=== PATIENT | female | born 1995 | race Two or more races ===

== ENCOUNTER 2018-01-05 12:29 | Emergency (ER) | payer MEDICAID, OTHER ==
[~2018-01-05] VITALS: Ht 170.2 cm; Wt 78.9 kg
[2018-01-05 15:15] LABS: Basophils # (auto) 0 uL; Eosinophils # (auto) 0 uL; Hematocrit 44.5 % (36.0-46.0); Hemoglobin 14.8 g/dL (12.2-16.2); Mean Corpuscular Hgb Conc. 33.3 g/dL (32.0-36.0); Monocytes # (auto) 0.6 uL; Neutrophils % (auto) 72.4 % (37.0-80.0); Nucleated Red Blood Cells % 0.1 %
[2018-01-05 15:17] LABS: Basophils % (auto) 0.2 % (0.0-2.0); Eosinophils % (auto) 0.1 % (0.0-7.0); Lymphocytes # (auto) 2.8 uL; Lymphocytes % (auto) 22.5 % (10.0-50.0); Mean Corpuscular Hemoglobin 26.2 pg (28.0-32.0); Mean Corpuscular Volume 78.7 fL (80.0-100.0); Monocytes % (auto) 4.8 % (0.0-12.0); Platelet Count (auto) 206 10^3/uL (140-450); Red Blood Cells 5.65 10^6/uL (4.0-5.20); Red Cell Distribution Width 17.6 % (11.8-14.3); White Blood Cell 12.4 10^3/uL (4.4-10.8)
[2018-01-05] MEDS ORDERED: FAMOTIDINE 20 MG TAB PO ONE (15:30)
[2018-01-05 15:35] LABS: Urine Bacteria NONE SEEN /hpf (None Seen); Urine Blood Negative /uL (Negative); Urine Mucus FEW (None Seen); Urine Specific Gravity 1.019 (1.001-1.035); Urine WBC 17 /hpf (0 - 5)
[2018-01-05 16:55] VITALS: BP 120/72
== END 2018-01-05 17:15 | disposition home or self-care (01) ==
LOC: ER 12:29
DX: O23.41 Unspecified infection of urinary tract in pregnancy, first trimester (principal); Z3A.00 Weeks of gestation of pregnancy not specified
CPT/HCPCS: 36415; 81001; 84702; 85025

== ENCOUNTER 2018-01-18 20:51 | Emergency (ER) | payer MEDICAID ==
[~2018-01-18] VITALS: Ht 172.7 cm; Wt 79.8 kg
[2018-01-18 21:51] LABS: Urine Bacteria NONE SEEN /hpf (None Seen); Urine Blood 1+ /uL (Negative); Urine Specific Gravity 1.011 (1.001-1.035); Urine WBC 2 /hpf (0 - 5)
[2018-01-18 21:55] LABS: Basophils # (auto) 0 uL; Basophils % (auto) 0.2 % (0.0-2.0); Eosinophils # (auto) 0 uL; Eosinophils % (auto) 0.3 % (0.0-7.0); Hematocrit 40.8 % (36.0-46.0); Hemoglobin 13.3 g/dL (12.2-16.2); Lymphocytes # (auto) 3.2 uL; Lymphocytes % (auto) 30.5 % (10.0-50.0); Mean Corpuscular Hgb Conc. 32.7 g/dL (32.0-36.0); Mean Corpuscular Volume 79.5 fL (80.0-100.0); Monocytes # (auto) 0.6 uL; Monocytes % (auto) 5.6 % (0.0-12.0); Neutrophils # (auto) 6.6 uL; Neutrophils % (auto) 63.4 % (37.0-80.0); Nucleated Red Blood Cells % 0.1 %; Platelet Count (auto) 209 10^3/uL (140-450); Red Blood Cells 5.14 10^6/uL (4.0-5.20); Red Cell Distribution Width 18.1 % (11.8-14.3); White Blood Cell 10.4 10^3/uL (4.4-10.8)
[2018-01-18 22:12] LABS: Albumin 3.4 g/dL (3.4-5.0); BUN/Creatinine Ratio 10.7; Bilirubin, Total 0.2 mg/dL (0.2-1.0); Calcium 8.7 mg/dL (8.5-10.1); Potassium 3.5 mmol/L (3.5-5.1); Total Protein 7.5 g/dL (6.4-8.2)
[2018-01-19 05:39] VITALS: BP 104/71
[2018-01-19] MEDS ORDERED: SODIUM CHLORIDE 0.9% 500 ML IV ONE (07:00)
== END 2018-01-19 07:48 | disposition home or self-care (01) ==
LOC: ER 20:51
DX: Z34.81 Encounter for supervision of other normal pregnancy, first trimester (principal)
CPT/HCPCS: 36415; 76801; 80053; 81001; 84702; 85025